=== PATIENT | female | born 1945 | race Hispanic/Latino ===

== ENCOUNTER → 2020-09-25 | Outpatient (CLI) | payer OTHER, MEDICARE ==
[~2020-09-25] VITALS: Ht 152.4 cm; Wt 73.9 kg
[~2020-09-25] MED LIST: REGADENOSON 0.4 MG/5 ML PF SYG IVP SCH
== END | disposition home or self-care (01) ==
LOC: SHCH 08:27
PROVIDERS: ATTEND Internal Medicine Cardiovascular Disease
DX: R06.09 Other forms of dyspnea (principal)
CPT/HCPCS: 78452; 93017; 96374; A9500 ×2; J2785

== ENCOUNTER 2020-11-14 07:58 | Day surgery (SDC) | payer OTHER, MEDICARE ==
[2020-11-08 14:28] LABS: BASOPHILS % (AUTO) 0.5 % (0.0-5.0); EOSINOPHILS % (AUTO) 2.5 % (0.0-8.0); HEMATOCRIT 36.3 % (36-48); LYMPHOCYTES % (AUTO) 28.5 % (21.0-51.0); MEAN CORPUSCULAR HEMOGLOBIN 31.4 pg (27.0-33.0); MEAN CORPUSCULAR HGB CONC 31.7 g/dL (32.0-36.0); MEAN CORPUSCULAR VOLUME 99.2 fL (79-99); MONOCYTES % (AUTO) 9.1 % (3.0-13.0); NEUTROPHILS % (AUTO) 59.2 % (40.0-77.0); PLATELET COUNT (AUTO) 214 K/uL (130-400); RED BLOOD CELL COUNT(AUTO) 3.66 MIL/uL (4.00-5.50); RED CELL DISTRIBUTION WIDTH 12.8 % (11.0-15.5); WHITE BLOOD COUNT (AUTO) 5.6 K/uL (4.8-10.8)
[2020-11-08 14:31] LABS: APPEARANCE,URINE Clear (CLEAR); BILIRUBIN,URINE Negative (NEGATIVE); COLOR,URINE Yellow (YELLOW); GLUCOSE, URINE (UA) Negative (NEGATIVE); KETONES,URINE Negative (NEGATIVE); LEUKOCYTE ESTERASE ,URINE Small (NEGATIVE); NITRATE,URINE Negative (NEGATIVE); OCCULT BLOOD,URINE Negative (NEGATIVE); PH,URINE 5.5 (5.0-8.0); PROTEIN,URINE POS 1+ mg/dL (NEGATIVE)
[2020-11-08 14:40] LABS: CREATININE 1.3 mg/dL (0.5-1.5); POTASSIUM 4.2 mmol/L (3.5-5.1)
[2020-11-08 14:42] LABS: INR 0.98 (0.85-1.15); PROTHROMBIN TIME 10.7 SEC (9.6-11.6)
[2020-11-08 14:43] LABS: BACTERIA,URINE Few /HPF (None Seen); MUCUS,URINE Few LPF (None Seen); PARTIAL THROMBOPLASTIN TIME 30.1 SEC (26.3-35.5); RBC,URINE 0-1 /HPF (0-1); SQUAMOUS EPITHELIAL CELL,UR Rare /HPF (0-2)
[2020-11-13 09:23] VITALS: BP 142/79
[~2020-11-14] VITALS: Ht 152.4 cm; Wt 77.3 kg
[2020-11-14] VITALS (12 sets, daily range): BP systolic 112–177; BP diastolic 41–75
[~2020-11-14 07:58] MED LIST changes: +0.9% NACL 500ML IV.SOLN 500 ML IV SCH; +ALBU90AE2 IH; +ASPI-1197 PO; +BUPR200T34 PO; +CALC-1125 PO; +CARI250T7 PO; +CLON0.5T4 PO; +ESCI-8 PO; +FLUT16H NASAL; +MECL-160 PO; +MELO-106 PO; +METF-910 PO; +MIRA50TA PO; +MONT10TA32 PO; +MULT-1367 PO; +OMEP40CA21 PO; +PIND10TA2 PO; +PRAS10TA9 PO; -REGADENOSON 0.4 MG/5 ML PF SYG IVP SCH; +UBID100C4 PO; +VITA-164 PO
[2020-11-14] MEDS ORDERED: 0.9%NACL 1000ML 1,000 ML IV ONE (08:52)
[2020-11-14] MEDS ORDERED: NITROGLYCERIN 2 MG VIAL IV ONE (10:15)
[2020-11-14] MEDS ORDERED: HEPARIN 10,000 UNIT/10ML (1,000 UNIT/ML) VIAL ONE (10:15)
[2020-11-14] MEDS ORDERED: BIVALIRUDIN 250 MG/VIAL IV ONE (10:15)
[2020-11-14] MEDS ORDERED: FENTANYL CITRATE PF 50 MCG/1 ML 2ML VIAL ONE (10:16)
[2020-11-14] MEDS ORDERED: IOHEXOL 350 MG/ML 100ML INFUS..BTL IV ONE (10:16)
[2020-11-14] MEDS ORDERED: MIDAZOLAM HCL 1 MG/ML 2ML VIAL ONE (10:16)
[2020-11-14] MEDS ORDERED: SODIUM BICARB 50MEQ 50ML VIAL 50 ML ONE (10:16)
[2020-11-14] MEDS ORDERED: LIDOCAINE HCL 400MG/20ML VIAL ONE (10:17)
[2020-11-14] MEDS ORDERED: LABETALOL 20MG VIAL IV ONE (11:05)
[2020-11-14] MEDS ORDERED: 0.9%NACL 1000ML 1,000 ML IV SCH (12:00)
[2020-11-14] MEDS ORDERED: GLUCAGON 1MG KIT 1 MG ML IM PRN (12:00)
[2020-11-14] MEDS ORDERED: DEXTROSE 50%-WATER 50 ML DISP.SYRIN IV PRN (12:00)
== END 2020-11-14 17:00 | disposition home or self-care (01) ==
LOC: DAH 07:58
PROVIDERS: ATTEND Internal Medicine Cardiovascular Disease
DX: I25.119 Atherosclerotic heart disease of native coronary artery with unspecified angina pectoris (principal); I25.2 Old myocardial infarction; E11.22 Type 2 diabetes mellitus with diabetic chronic kidney disease; N18.9 Chronic kidney disease, unspecified; G47.30 Sleep apnea, unspecified; K21.9 Gastro-esophageal reflux disease without esophagitis; F32.9 Major depressive disorder, single episode, unspecified; E78.2 Mixed hyperlipidemia; Z79.01 Long term (current) use of anticoagulants; Z79.899 Other long term (current) drug therapy; Z98.890 Other specified postprocedural states; Z79.82 Long term (current) use of aspirin; Z95.5 Presence of coronary angioplasty implant and graft; Z82.49 Family history of ischemic heart disease and other diseases of the circulatory system; Z79.84 Long term (current) use of oral hypoglycemic drugs; I25.82 Chronic total occlusion of coronary artery
CPT/HCPCS: 36415; 71045; 80048; 81001; 82948 ×2; 85025; 85610; 85730; 93005; 93459; A4215; A4216; A4221; A4222; A4223 ×3; A4606; A4663; C1760; C1894 ×2; J1644; J2250; J3010; J3490 ×4; J7030; Q9965 ×3; Q9967; 96360; 96361; 99156; 99157; J0583

== ENCOUNTER → 2023-01-20 | Outpatient (CLI) | payer OTHER, MEDICARE ==
[~2023-01-20] MED LIST changes: -0.9% NACL 500ML IV.SOLN 500 ML IV SCH; -MECL-160 PO; +MECL-302 PO; +MONT-39 PO; -MONT10TA32 PO; -VITA-164 PO; +VITA-348 PO
[2023-01-20 12:05] LABS: BASOPHILS # (AUTO) 0.03 K/uL (0.00-0.20); BASOPHILS % (AUTO) 0.4 % (0.0-5.0); EOSINOPHILS # (AUTO) 0.13 K/uL (0.00-0.70); EOSINOPHILS % (AUTO) 1.9 % (0.0-8.0); HEMATOCRIT 41.4 % (36-48); IMMATURE GRANULOCYTE ABSOLUTE 0.03 K/uL (0-1); LYMPHOCYTES # (AUTO) 2.2 K/uL (1.0-4.8); LYMPHOCYTES % (AUTO) 32.6 % (21.0-51.0); MEAN CORPUSCULAR HEMOGLOBIN 31.8 pg (27.0-33.0); MEAN CORPUSCULAR HGB CONC 30.9 g/dL (32.0-36.0); MONOCYTES # (AUTO) 0.5 K/uL (0.1-1.0); MONOCYTES % (AUTO) 7.8 % (3.0-13.0); NEUTROPHILS # (AUTO) 3.8 K/uL (1.8-7.7); NEUTROPHILS % (AUTO) 56.9 % (40.0-77.0); PLATELET COUNT (AUTO) 218 K/uL (130-400); RED BLOOD CELL COUNT(AUTO) 4.02 MIL/uL (4.00-5.50); RED CELL DISTRIBUTION WIDTH 13.1 % (11.0-15.5); WHITE BLOOD COUNT (AUTO) 6.8 K/uL (4.8-10.8)
[2023-01-20 12:16] LABS: ALBUMIN 3.5 g/dL (3.5-5.0); BILIRUBIN,TOTAL 0.4 mg/dL (0.2-1.0); CREATININE 1.3 mg/dL (0.5-1.5); POTASSIUM 4.4 mmol/L (3.5-5.1); TOTAL PROTEIN, SERUM 7.3 g/dL (6.0-8.3)
== END | disposition home or self-care (01) ==
LOC: LAB 10:50
PROVIDERS: ATTEND Internal Medicine Cardiovascular Disease
DX: I25.810 Atherosclerosis of coronary artery bypass graft(s) without angina pectoris (principal); E78.2 Mixed hyperlipidemia; I25.9 Chronic ischemic heart disease, unspecified
CPT/HCPCS: 36415; 80053; 80061; 85025

== ENCOUNTER → 2023-07-22 | Outpatient (CLI) | payer OTHER, MEDICARE ==
[2023-07-22 12:09] LABS: BASOPHILS # (AUTO) 0.05 K/uL (0.00-0.20); BASOPHILS % (AUTO) 0.7 % (0.0-5.0); EOSINOPHILS # (AUTO) 0.16 K/uL (0.00-0.70); EOSINOPHILS % (AUTO) 2.3 % (0.0-8.0); HEMATOCRIT 38.9 % (36-48); IMMATURE GRANULOCYTE ABSOLUTE 0.06 K/uL (0-1); LYMPHOCYTES # (AUTO) 2.5 K/uL (1.0-4.8); LYMPHOCYTES % (AUTO) 36.3 % (21.0-51.0); MEAN CORPUSCULAR HGB CONC 32.9 g/dL (32.0-36.0); MEAN CORPUSCULAR VOLUME 103.2 fL (79-99); MONOCYTES # (AUTO) 0.6 K/uL (0.1-1.0); MONOCYTES % (AUTO) 8.5 % (3.0-13.0); NEUTROPHILS # (AUTO) 3.6 K/uL (1.8-7.7); NEUTROPHILS % (AUTO) 51.3 % (40.0-77.0); PLATELET COUNT (AUTO) 213 K/uL (130-400); RED BLOOD CELL COUNT(AUTO) 3.77 MIL/uL (4.00-5.50); RED CELL DISTRIBUTION WIDTH 12.5 % (11.0-15.5); WHITE BLOOD COUNT (AUTO) 6.9 K/uL (4.8-10.8)
[2023-07-22 12:21] LABS: ALBUMIN 3.5 g/dL (3.5-5.0); BILIRUBIN,TOTAL 0.3 mg/dL (0.2-1.0); CREATININE 1.3 mg/dL (0.5-1.0); POTASSIUM 4.5 mmol/L (3.5-5.1); TOTAL PROTEIN, SERUM 7.4 g/dL (6.0-8.3)
== END | disposition home or self-care (01) ==
LOC: LAB 09:28
PROVIDERS: ATTEND Internal Medicine Cardiovascular Disease
DX: I25.810 Atherosclerosis of coronary artery bypass graft(s) without angina pectoris (principal); R06.00 Dyspnea, unspecified; R05.9 Cough, unspecified; Z79.899 Other long term (current) drug therapy
CPT/HCPCS: 36415; 80053; 80061; 85025

== ENCOUNTER → 2024-01-15 | Outpatient (CLI) | payer OTHER, MEDICARE ==
[~2024-01-15] MED LIST changes: -ALBU90AE2 IH; +ALBU90AE3 IH
== END | disposition home or self-care (01) ==
LOC: RAH 09:48
PROVIDERS: ATTEND Otolaryngology Plastic Surgery within the Head & Neck
DX: E04.2 Nontoxic multinodular goiter (principal); K11.23 Chronic sialoadenitis
CPT/HCPCS: 76536

== ENCOUNTER → 2024-01-22 | Outpatient (CLI) | payer OTHER, MEDICARE ==
[2024-01-22 12:17] LABS: BASOPHILS # (AUTO) 0.03 K/uL (0.00-0.20); BASOPHILS % (AUTO) 0.5 % (0.0-5.0); EOSINOPHILS % (AUTO) 1.7 % (0.0-8.0); HEMATOCRIT 35.3 % (36-48); IMMATURE GRANULOCYTE ABSOLUTE 0.02 K/uL (0-1); LYMPHOCYTES # (AUTO) 1.4 K/uL (1.0-4.8); LYMPHOCYTES % (AUTO) 24.2 % (21.0-51.0); MEAN CORPUSCULAR HEMOGLOBIN 34.2 pg (27.0-33.0); MEAN CORPUSCULAR HGB CONC 32.9 g/dL (32.0-36.0); MEAN CORPUSCULAR VOLUME 104.1 fL (79-99); MONOCYTES # (AUTO) 0.5 K/uL (0.1-1.0); MONOCYTES % (AUTO) 9.3 % (3.0-13.0); NEUTROPHILS # (AUTO) 3.7 K/uL (1.8-7.7); PLATELET COUNT (AUTO) 196 K/uL (130-400); RED BLOOD CELL COUNT(AUTO) 3.39 MIL/uL (4.00-5.50); RED CELL DISTRIBUTION WIDTH 13.1 % (11.0-15.5); WHITE BLOOD COUNT (AUTO) 5.8 K/uL (4.8-10.8)
[2024-01-22 12:33] LABS: ALBUMIN 3.5 g/dL (3.5-5.0); BILIRUBIN,TOTAL 0.5 mg/dL (0.2-1.0); CREATININE 1.2 mg/dL (0.5-1.0); POTASSIUM 4.8 mmol/L (3.5-5.1); TOTAL PROTEIN, SERUM 7.1 g/dL (6.0-8.3)
== END | disposition home or self-care (01) ==
LOC: LAB 10:29
PROVIDERS: ATTEND Internal Medicine Cardiovascular Disease
DX: I10 Essential (primary) hypertension (principal); E78.5 Hyperlipidemia, unspecified; I25.810 Atherosclerosis of coronary artery bypass graft(s) without angina pectoris
CPT/HCPCS: 36415; 80053; 80061; 85025

== ENCOUNTER → 2024-02-16 | Outpatient (CLI) | payer OTHER, MEDICARE ==
[2024-02-16 10:56] LABS: INR 0.97 (0.85-1.15); PROTHROMBIN TIME 10.5 SEC (9.6-11.6)
[2024-02-16 10:58] LABS: PARTIAL THROMBOPLASTIN TIME 30.4 SEC (26.3-35.5)
--- NOTE | 2024-02-16 12:00 | NUR ---
ULTRASOUND GUIDED RIGHT THYROID FINE NEEDLE ASPIRATION PROCEDURE PERFORMED BY DR. Guanaco RAPP. PUNCTURE SITE TO RIGHT NECK AND PATIENT TOLERATED PROCEDURE WELL. SPECIMEN X4 COLLECTED. END OF PROCEDURE AT 1140. NEEDLE REMOVED AND BAND-AID DRESSING APPLIED- NO BLEEDING NOTED. DISCHARGE INSTRUCTIONS GIVEN TO PATIENT AND VERBALIZED UNDERSTANDING. PATIENT DISCHARGED VIA WHEELCHAIR IN STABLE CONDITION WITH NO C/O PAIN ACCOMPANIED BY DAUGHTER.
--- NOTE | 2024-02-16 16:06 | HMCIMG ---
US FINE NEEDLE ASP IR HISTORY: Thyroid nodule COMPARISON: None TECHNIQUE: Informed consent was obtained. Risks and benefits were explained to the patient. A timeout was performed. Patient was prepped and draped in a sterile fashion. Local anesthetics was given as required. Under ultrasound guidance, right thyroid mass was localized. Ultrasound guidance right thyroid mass needle aspiration was performed without complication. FINDINGS: Patient tolerated procedure without complication. Patient left the department in good condition. IMPRESSION: 1. Uncomplicated ultrasound guidance right thyroid mass needle aspiration.
== END | disposition home or self-care (01) ==
LOC: RAH 10:02
PROVIDERS: ATTEND Otolaryngology Plastic Surgery within the Head & Neck
DX: E04.2 Nontoxic multinodular goiter (principal); Z88.8 Allergy status to other drugs, medicaments and biological substances; Z88.7 Allergy status to serum and vaccine; Z79.01 Long term (current) use of anticoagulants
CPT/HCPCS: 10005; 36415; 76942; 85610; 85730; 88173; 88305

== ENCOUNTER → 2024-04-22 | Outpatient (CLI) | payer OTHER, MEDICARE ==
[2024-04-22 15:14] LABS: BASOPHILS # (AUTO) 0.04 K/uL (0.00-0.20); BASOPHILS % (AUTO) 0.6 % (0.0-5.0); EOSINOPHILS # (AUTO) 0.15 K/uL (0.00-0.70); EOSINOPHILS % (AUTO) 2.4 % (0.0-8.0); HEMATOCRIT 42.9 % (36-48); IMMATURE GRANULOCYTE ABSOLUTE 0.03 K/uL (0-1); LYMPHOCYTES # (AUTO) 1.7 K/uL (1.0-4.8); LYMPHOCYTES % (AUTO) 27.5 % (21.0-51.0); MEAN CORPUSCULAR HEMOGLOBIN 33.5 pg (27.0-33.0); MEAN CORPUSCULAR HGB CONC 31.9 g/dL (32.0-36.0); MEAN CORPUSCULAR VOLUME 104.9 fL (79-99); MONOCYTES # (AUTO) 0.6 K/uL (0.1-1.0); MONOCYTES % (AUTO) 9.1 % (3.0-13.0); NEUTROPHILS # (AUTO) 3.8 K/uL (1.8-7.7); NEUTROPHILS % (AUTO) 59.9 % (40.0-77.0); PLATELET COUNT (AUTO) 206 K/uL (130-400); RED BLOOD CELL COUNT(AUTO) 4.09 MIL/uL (4.00-5.50); RED CELL DISTRIBUTION WIDTH 12.7 % (11.0-15.5); WHITE BLOOD COUNT (AUTO) 6.3 K/uL (4.8-10.8)
[2024-04-22 15:32] LABS: ALBUMIN 3.4 g/dL (3.5-5.0); BILIRUBIN,TOTAL 0.3 mg/dL (0.2-1.0); CREATININE 1.1 mg/dL (0.5-1.0); POTASSIUM 4.1 mmol/L (3.5-5.1); TOTAL PROTEIN, SERUM 7.2 g/dL (6.0-8.3)
== END | disposition home or self-care (01) ==
LOC: LAB 11:14
PROVIDERS: ATTEND Internal Medicine Cardiovascular Disease
DX: I13.0 Hypertensive heart and chronic kidney disease with heart failure and stage 1 through stage 4 chronic kidney disease, or unspecified chronic kidney disease (principal); I50.22 Chronic systolic (congestive) heart failure; N18.30 Chronic kidney disease, stage 3 unspecified; I25.2 Old myocardial infarction; E04.1 Nontoxic single thyroid nodule
CPT/HCPCS: 36415; 80053; 80061; 85025